=== PATIENT | male | born 1955 | race Caucasian/White ===

== ENCOUNTER 2025-01-03 14:01 | Inpatient (IN) | payer MEDICARE, BC ==
[~2025-01-03] VITALS: Ht 182.9 cm; Wt 90.7 kg
[2025-01-03 15:36] LABS: BASOPHILS % 0.2 % (0.0-1.0); EOSINOPHILS % 0.1 % (0.0-6.0); LYMPHOCYTES % 13.5 % (18.0-39.1); MONOCYTES % 6.6 % (4.4-11.3); NEUTROPHILS % 78.8 % (38.7-80.0); RED CELL DISTRIBUTION WIDTH 12.5 % (11.7-14.4)
[2025-01-03] MEDS: SODIUM CHLORIDE 0.9% 1000ML 2,720 ML IV ONE (15:43)
[2025-01-03] MEDS: ACETAMINOPHEN 1000 MG/100 ML IV STA (15:44)
[2025-01-03 15:54] LABS: EST GLOMERULAR FILTRATION RATE 56.0 ML/MIN (>=60)
[2025-01-03] MEDS: CEFTRIAXONE 2 GM in SODIUM CHLORIDE 0.9% 100 ML IV ONE (15:56)
[2025-01-03] MEDS: Vancomycin IV 1 GM in SODIUM CHLORIDE 0.9% 250ML 250 ML IV ONE (15:56)
[2025-01-03 16:02] LABS: INR 0.95
[2025-01-03 16:05] LABS: CORONAVIRUS COVID-19 AG NEGATIVE (NEGATIVE)
[2025-01-03 16:45] LABS: LEUKOCYTE ESTERASE ,URINE NEGATIVE (NEGATIVE)
[2025-01-03 16:46] LABS: PROTEIN,URINE DIPSTICK 2+ (NEGATIVE); URINE UROBILINOGEN 1 mg/dL (0.2 - 1)
[2025-01-03] MEDS ORDERED: SODIUM CHLORIDE 0.9% 1000ML 1,000 ML IV SCH ×2 (17:15→17:45)
[2025-01-03] MEDS ORDERED: IOPAMIDOL 370 MG/ML 100 ML INFUS..BTL INJ ONE (17:18)
[2025-01-03 17:37] VITALS: PULSE 75; RESP 16; TEMP 98.8
[2025-01-03] MEDS: SODIUM CHLORIDE 0.9% 1000ML 1,000 ML IV SCH (17:39)
[2025-01-03 19:52] VITALS: BP 143/64; PULSE 80; RESP 18; TEMP 99.6; O2SAT 98
[2025-01-03] MEDS ORDERED: ENOXAPARIN SODIUM INJ 100 MG/ML SYR SC SCH (21:15)
[2025-01-03] MEDS: ENOXAPARIN SODIUM INJ 100 MG/ML SYR SC SCH (21:26)
[2025-01-04] VITALS (12 sets, daily range): BP systolic 112–154; BP diastolic 60–78; PULSE 73–89; RESP 18–22; TEMP 97.8–100; O2SAT 95–100
[2025-01-04 05:21] LABS: BASOPHILS % 0.1 % (0.0-1.0); EOSINOPHILS % 0.1 % (0.0-6.0); LYMPHOCYTES % 13.0 % (18.0-39.1); MONOCYTES % 5.3 % (4.4-11.3); NEUTROPHILS % 80.8 % (38.7-80.0); RED CELL DISTRIBUTION WIDTH 12.8 % (11.7-14.4)
[2025-01-04 05:57] LABS: EST GLOMERULAR FILTRATION RATE 83.0 ML/MIN (>=60)
[2025-01-04] MEDS: ACETAMINOPHEN 325 MG TAB PO PRN (06:44)
[2025-01-04] MEDS ORDERED: ENOXAPARIN SODIUM INJ 100 MG/ML SYR SC SCH (09:00)
[2025-01-04] MEDS ORDERED: MELOXICAM7.5 MG PO (11:56)
[2025-01-04] MEDS ORDERED: GABAPENTIN300 MG PO (11:56)
[2025-01-04] MEDS ORDERED: PREDNISONE20 MG PO (11:56)
[2025-01-04] MEDS: LACTATED RINGER'S 1,000 ML INJ SCH (13:04)
[2025-01-05] VITALS (10 sets, daily range): BP systolic 117–138; BP diastolic 60–75; PULSE 66–76; RESP 17–20; TEMP 97.3–98.9; O2SAT 93–98
[2025-01-05 07:31] LABS: BASOPHILS % 0.1 % (0.0-1.0); EOSINOPHILS % 0.4 % (0.0-6.0); LYMPHOCYTES % 16.2 % (18.0-39.1); MONOCYTES % 7.3 % (4.4-11.3); NEUTROPHILS % 75.4 % (38.7-80.0); RED CELL DISTRIBUTION WIDTH 12.5 % (11.7-14.4)
[2025-01-05 07:58] LABS: EST GLOMERULAR FILTRATION RATE 96.0 ML/MIN (>=60)
[2025-01-06] VITALS: BP 141/58; PULSE 64; RESP 20; TEMP 98.2; O2SAT 100
[2025-01-06 04:00] VITALS: BP 139/72; PULSE 65; RESP 20; TEMP 98.6; O2SAT 99
[2025-01-06 08:09] LABS: BASOPHILS % 0.1 % (0.0-1.0); EOSINOPHILS % 0.4 % (0.0-6.0); LYMPHOCYTES % 19.8 % (18.0-39.1); MONOCYTES % 6.7 % (4.4-11.3); NEUTROPHILS % 72.5 % (38.7-80.0); RED CELL DISTRIBUTION WIDTH 12.2 % (11.7-14.4)
[2025-01-06 08:32] LABS: EST GLOMERULAR FILTRATION RATE 97.0 ML/MIN (>=60)
[2025-01-06 08:40] VITALS: BP 117/76; PULSE 61; RESP 18; TEMP 97.3; O2SAT 98
[2025-01-06 08:55] VITALS: BP 117/76; PULSE 61; RESP 18; TEMP 97.3; O2SAT 98
[2025-01-06 10:22] VITALS: PULSE 75; RESP 18; O2SAT 98
[2025-01-06] MEDS: ALBUTEROL/IPRATROPIUM 3 ML NEB NEB PRN (10:22)
[2025-01-06 11:17] VITALS: BP 149/63; PULSE 67; RESP 18; TEMP 97.2; O2SAT 97
[2025-01-06] MEDS: POTASSIUM CHLORIDE 10MEQ EA PO ONE (12:03)
[2025-01-06] MEDS ORDERED: MELOXICAM 7.5 MG TAB PO PRN (12:15)
[2025-01-06] MEDS ORDERED: ELIQUIS5 MG PO (12:27)
[2025-01-06] MEDS ORDERED: VENTOLIN HFA18 GM INH (12:27)
[2025-01-06] MEDS ORDERED: CEFDINIR300 MG PO (12:27)
[2025-01-06] MEDS ORDERED: ACETAMINOPHEN325 M1 PO (12:27)
[2025-01-06] MEDS ORDERED: QUESTRAN PACKET4 GM PO (12:48)
[2025-01-06] MEDS ORDERED: CHOLESTYRAMINE 4 GM PACKET PO ONE (13:00)
[2025-01-06] MEDS ORDERED: PREDNISONE 20 MG TAB PO SCH (17:00)
[2025-01-06] MEDS ORDERED: GABAPENTIN 300 MG CAP PO SCH (21:00)
[2025-01-06] MEDS ORDERED: APIXABAN 5 MG TABLET PO SCH (21:00)
== END 2025-01-06 14:27 | disposition home or self-care (01) | DRG 871 ==
LOC: ER 15:12 → ERHOLD 17:43 → MED/SURG 19:53
PROVIDERS: ADMIT Internal Medicine; ATTEND Internal Medicine
PROC: 3E0333Z Introduction of Anti-inflammatory into Peripheral Vein, Percutaneous Approach (ICD-10-PCS; principal; 2025-01-03)
DX: A41.9 Sepsis, unspecified organism (principal); I26.99 Other pulmonary embolism without acute cor pulmonale; J15.9 Unspecified bacterial pneumonia; N17.0 Acute kidney failure with tubular necrosis; E87.1 Hypo-osmolality and hyponatremia; N39.0 Urinary tract infection, site not specified; R65.20 Severe sepsis without septic shock; R62.7 Adult failure to thrive; E86.0 Dehydration; E11.65 Type 2 diabetes mellitus with hyperglycemia; N40.1 Benign prostatic hyperplasia with lower urinary tract symptoms; R33.8 Other retention of urine; E87.6 Hypokalemia; N20.0 Calculus of kidney; K57.30 Diverticulosis of large intestine without perforation or abscess without bleeding; R31.29 Other microscopic hematuria; R53.81 Other malaise; E66.9 Obesity, unspecified; M54.9 Dorsalgia, unspecified; Z11.52 Encounter for screening for COVID-19; Z90.49 Acquired absence of other specified parts of digestive tract; Z87.891 Personal history of nicotine dependence; Z88.5 Allergy status to narcotic agent
CPT/HCPCS: 36415; 51700; 70450; 71045; 71260; 72125; 74176; 80048; 80053; 81001; 82550; 83036; 83518; 83605; 83735; 84484; 85025; 85610; 85730; 87040; 87070; 87086; 93005; 93306; 94640; 94799; 99285; J0696; J1650; J2543; J3373; J7030; J7050; Q9967

== ENCOUNTER → 2025-02-07 | Outpatient (REF) | payer MEDICARE, BC ==
[~2025-02-07] MED LIST: ACETAMINOPHEN325 M1 PO; CEFDINIR300 MG PO; ELIQUIS5 MG PO; GABAPENTIN300 MG PO; IOPAMIDOL 370 MG/ML 100 ML INFUS..BTL INJ ONE; MELOXICAM7.5 MG PO; PREDNISONE20 MG PO; QUESTRAN PACKET4 GM PO; VENTOLIN HFA18 GM INH
[2025-02-07 14:33] LABS: EST GLOMERULAR FILTRATION RATE 81.0 ML/MIN (>=60)
== END ==
LOC: CT 13:40
PROVIDERS: ATTEND Internal Medicine Critical Care Medicine
DX: J18.9 Pneumonia, unspecified organism (principal); I26.99 Other pulmonary embolism without acute cor pulmonale
CPT/HCPCS: 36415; 71260; 82565; 84520; Q9967